=== PATIENT | female | born 1995 | race Caucasian/White ===

== ENCOUNTER 2016-10-23 14:57 | Inpatient (IN) ==
[2016-10-23] MEDS ORDERED: PEPCID IV PRN (20:15)
[2016-10-23] MEDS ORDERED: AMBIEN PO PRN (20:15)
[2016-10-23] MEDS ORDERED: PITOCIN 30 UNITS/LR 30 UNITS/500 ML IV.SOLN IV SCH (20:15)
[2016-10-23] MEDS ORDERED: BRETHINE SUBQ PRN (20:15)
[2016-10-23] MEDS ORDERED: PEPCID PO PRN (20:15)
[2016-10-23] MEDS ORDERED: TYLENOL PO PRN (20:15)
[2016-10-23] MEDS ORDERED: STADOL IV PRN ×2 (20:15)
[2016-10-23] MEDS ORDERED: KEFZOL 1 GM/D5W 1 GM/50 ML IVPB IV PRN (20:15)
[2016-10-23] MEDS ORDERED: ZOFRAN IV PRN (20:15)
[2016-10-23] MEDS ORDERED: AMPICILLIN 2 GM/NS 2 GM/100 ML IVPB IV ONE (20:22)
[2016-10-23] MEDS: LR 1,000 ML IV ONE (21:36)
[2016-10-23] MEDS ORDERED: CYTOTEC PO ONE (23:00)
[2016-10-23 23:12] LABS: URINE SOURCE VOIDED
[2016-10-23 23:12] LABS: MANUAL DIFF NEEDED? NO
[2016-10-23 23:34] LABS: BASO% 0.1 % (0.0-0.8); EOS# 0.35 X1000 (0.0-0.7); EOS% 2.5 % (0.0-10.0); HEMOGLOBIN 11.3 g/dL (12.0-16.0); IMM GRAN# 0.14 X1000 (0.0-0.04); LYMPH# 2.12 X1000 (1.2-3.4); LYMPH% 15.2 % (20.5-51.1); MCH 29.4 PG (27-31); MCHC 33.2 g/dL (33-37); MCV 88.5 FL (81-99); MONO# 1.24 X1000 (0.11-0.59); MONO% 8.9 % (1.7-9.3); MPV 10.7 FL (7.4-10.4); NEUT% 72.3 % (42.2-75.2); PLT 213 X1000 (130-400); RBC 3.84 XMIL (4.2-5.4)
[2016-10-23 23:40] LABS: CLARITY CLEAR (CLEAR); COLOR YELLOW
[2016-10-23 23:41] LABS: BILIRUBIN URINE NEGATIVE (NEGATIVE); BLOOD URINE NEGATIVE (NEGATIVE)
[2016-10-23 23:42] LABS: LEUKOCYTES URINE NEGATIVE (NEGATIVE); NITRITE URINE NEGATIVE (NEGATIVE); PROTEIN URINE NEGATIVE (NEGATIVE); UROBILINOGEN URINE NORMAL
[2016-10-23 23:48] LABS: UR AMPHETAMINES QUAL NONE DETECTED (NONE DETECT); UR BARBITUATES QUAL NONE DETECTED (NONE DETECT); UR BENZODIAZEPIN QUAL NONE DETECTED (NONE DETECT); UR CANNABINOIDS QUAL NONE DETECTED (NONE DETECT); UR COCAINE QUAL NONE DETECTED (NONE DETECT); UR MDMA QUAL NONE DETECTED (NONE DETECT); UR METHADONE QUAL NONE DETECTED (NONE DETECT); UR METHAMPHETAMINE QUAL NONE DETECTED (NONE DETECT); UR OPIATES QUAL NONE DETECTED (NONE DETECT); UR OXYCODONE QUAL NONE DETECTED (NONE DETECT); UR PCP QUAL NONE DETECTED (NONE DETECT); UR TCA QUAL NONE DETECTED (NONE DETECT)
[2016-10-24] MEDS: AMPICILLIN 1 GM/NS 1 GM/50 ML IVPB IV SCH ×3 (01:34→09:26)
[2016-10-24] MEDS: LR 1,000 ML IV ONE (03:04)
[2016-10-24] MEDS: CYTOTEC PO SCH ×2 (03:04→06:22)
[2016-10-24] MEDS ORDERED: MINERAL OIL ONE (07:11)
[2016-10-24] MEDS ORDERED: XYLOCAINE-MPF 1% INJ ONE (07:12)
[2016-10-24] MEDS ORDERED: FENTANYL-BUPIV-NS 2 MCG-0.1% 200 ML EPIDURAL PRN (08:12)
[2016-10-24] MEDS: STADOL IV PRN ×2 (09:49→12:57)
[2016-10-24] MEDS ORDERED: LR 1,000 ML IV SCH (13:00)
[2016-10-24] MEDS ORDERED: BICITRA PO ONE (13:15)
[2016-10-24] MEDS ORDERED: PEPCID IV ONE (13:15)
--- NOTE | 2016-10-24 13:33 | HISTORY AND PHYSICAL ---
DIAGNOSIS: Failure to progress in labor. SUMMARY: Sharlene Pereira is a 21-year-old, primigravida at 39 weeks gestation. Her blood type is A negative. Rubella immune. Hepatitis B surface antigen and HIV are negative. Group B strep is positive. The patient's was uncomplicated until into the 3rd trimester when the ultrasound revealed a small for gestational age findings and decreased amniotic fluid. There has been some increase in growth and normalization of fluid but the still measures small for gestational age. We have been doing NSTs due to decreased movement. Due to these concerns about status she was admitted to the hospital last night and we began Cytotec. This morning we started IV Pitocin. In spite of these measures her cervix is still fingertip dilated and 50% effaced and the infant's head is at -1 station. After discussing options with the patient of C- section versus 2nd day of induction, decision was made to proceed with delivery. PAST MEDICAL HISTORY: Patient has no chronic medical or surgical illnesses. ALLERGIES: Z-Joshua. CURRENT MEDICATIONS: vitamins. PHYSICAL EXAMINATION: GENERAL: Shows a well-developed, well-nourished female. VITAL SIGNS: Stable and she is afebrile. CARDIOVASCULAR: Regular rate and rhythm without murmurs, rubs, or gallops. PULMONARY: Clear. BREASTS: No masses. ABDOMEN: Gravid. PELVIC: Cervix as above. EXTREMITIES: There is 1+ edema. IMPRESSION: Failed induction of labor. Indication for induction was small for gestational age. PLAN: We will proceed with delivery. Risks, benefits, possible complications, and obstetrical indications were discussed. cc: Kirill Hoyt MD
[2016-10-24] MEDS ORDERED: NEO-SYNEPHRINE ONE (13:40)
[2016-10-24] MEDS ORDERED: NS 0 ML ONE (13:40)
[2016-10-24] MEDS ORDERED: SODIUM CHLORIDE 0.9% 10 ML ONE (13:42)
[2016-10-24] MEDS ORDERED: DURAMORPH ONE (13:44)
[2016-10-24] MEDS ORDERED: ZOFRAN ONE (13:46)
[2016-10-24] MEDS ORDERED: PITOCIN ONE ×2 (13:47→14:21)
[2016-10-24] MEDS ORDERED: ZOFRAN ODT PO PRN (15:28)
[2016-10-24] MEDS ORDERED: ZOFRAN IV PRN ×2 (15:28)
[2016-10-24] MEDS ORDERED: NARCAN INJ PRN (15:28)
[2016-10-24] MEDS ORDERED: PITOCIN 10 UNITS/LR 10 UNIT/1,000 ML IV.SOLN IV SCH (15:47)
[2016-10-24] MEDS ORDERED: PITOCIN 20 UNITS/LR 20 UNITS/1,000 ML IV.SOLN IV ONE (15:47)
[2016-10-24] MEDS ORDERED: M-M-R II VACCINE SUBQ ONE (15:47)
[2016-10-24] MEDS ORDERED: HYDROXYZINE IM PRN (15:47)
[2016-10-24] MEDS ORDERED: PERCOCET-10 PO PRN (15:47)
[2016-10-24] MEDS ORDERED: PHENERGAN IM PRN (15:47)
[2016-10-24] MEDS ORDERED: NORCO-10 PO PRN (15:47)
[2016-10-24] MEDS ORDERED: CYTOTEC PO PRN (15:47)
[2016-10-24] MEDS ORDERED: PITOCIN IM PRN (15:47)
[2016-10-24] MEDS ORDERED: DEMEROL PO PRN ×2 (15:47)
[2016-10-24] MEDS ORDERED: PERCOCET-5 PO PRN (15:47)
[2016-10-24] MEDS ORDERED: AMBIEN PO PRN (15:47)
[2016-10-24] MEDS ORDERED: MYLICON PO PRN (15:47)
[2016-10-24] MEDS ORDERED: DEMEROL IM PRN (15:47)
[2016-10-24] MEDS ORDERED: HYDROXYZINE PO PRN (15:47)
[2016-10-24] MEDS ORDERED: DULCOLAX PR PRN (15:47)
[2016-10-24] MEDS ORDERED: BOOSTRIX VACCINE IM ONE (15:47)
[2016-10-24] MEDS: TORADOL IV PRN ×2 (15:50→22:05)
[2016-10-24] MEDS: TORADOL IV SCH ×2 (17:43→23:13)
[2016-10-24] MEDS: MYLICON PO SCH ×2 (18:05→22:06)
--- NOTE | 2016-10-24 18:09 | OPERATIVE NOTE ---
PROCEDURE DATE: 10/24/2016 SURGEON: Kirill Hoyt MD ANESTHESIA: Spinal. OPERATION PERFORMED: Primary low transverse PREOPERATIVE DIAGNOSES: 1. Term . 2. Failure to progress in labor. POSTOPERATIVE DIAGNOSES: Term . Failure to progress in labor. FINDINGS: At 1415 hours, a 6 pound 15 ounce male was delivered in a vertex presentation. Apgars were 9 at 1 minute and 10 at 5 minutes. Summary of Ms. grullon he was taken back to operating room, where spinal anesthetic was placed. She was then placed in supine position with left lateral tilt. A Sherwood catheter was in her urinary bladder draining clear urine. The abdomen was prepped and draped in usual fashion. Once satisfactory conduction of anesthesia was demonstrated, a Pfannenstiel incision was made. This incision was taken down to the fascia. The fascia was excised transversely. The underlying rectus muscles were bluntly and sharply dissected free. Rectus muscle was in midline. The peritoneum was entered. Lower uterine segment was identified. A bladder flap was created. A low transverse incision was made across the myometrium. This incision extended laterally using digital pressure. Membranes were ruptured revealing a small amount of clear fluid. 's vertex was delivered through this incision without difficulty. Shoulders and body delivered without complications. Oropharynx was bulb suctioned. The cord was clamped and cut. The was handed nurses for further care and evaluation. Cord blood was obtained. Placenta was manually removed. Uterus as well as the abdominal wall explored. All membrane fragments removed. The myometrium was then reapproximated using a running #1 chromic interlocking suture. The uterus was placed back in pelvic cavity. The pelvic cavity was irrigated with copious amounts of sterile water. The uterine incision was reexamined and found to be hemostatic. First and 2nd sponge, instrument and needle counts were reported as correct. The peritoneum was closed using running chromic suture. Third sponge, instrument and needle count reported as correct. The fascia closed using running Vicryl sutures x2. The adipose tissue was reapproximated using a running 3-0 Vicryl suture, and the skin edges reapproximated using a 4-0 Biosyn on a Deondre needle. Anesthesia estimated her blood loss at 500 mL. There were no complications. The patient went to recovery room in stable condition. cc: Kirill Hoyt MD
[2016-10-24] MEDS: MORPHINE IV PRN (18:35)
[2016-10-24] MEDS: PERICOLACE PO SCH (20:47)
[2016-10-24] MEDS: BENADRYL IV PRN (22:07)
[2016-10-25] MEDS: MORPHINE IV PRN (03:01)
[2016-10-25] MEDS: BENADRYL IV PRN (03:09)
[2016-10-25] MEDS: TORADOL IV SCH ×2 (03:09→08:50)
[2016-10-25 06:57] LABS: HEMATOCRIT 27.1 % (37.0-47.0); HEMOGLOBIN 8.9 g/dL (12.0-16.0); MCH 29.4 PG (27-31); MCHC 32.8 g/dL (33-37); MCV 89.4 FL (81-99); MPV 9.7 FL (7.4-10.4); RBC 3.03 XMIL (4.2-5.4)
[2016-10-25] MEDS: PRECARE PO SCH (08:50)
[2016-10-25] MEDS: HEMOCYTE PLUS CAPSULE PO SCH (08:50)
[2016-10-25] MEDS: MYLICON PO SCH ×4 (08:50→20:47)
[2016-10-25] MEDS: NORCO-5 PO PRN ×2 (14:11→19:17)
[2016-10-25] MEDS ORDERED: LR 1,000 ML IV SCH (15:04)
[2016-10-25] MEDS: PERICOLACE PO SCH (20:47)
[2016-10-26] MEDS: MOTRIN PO PRN ×2 (00:15→09:37)
[2016-10-26] MEDS: MYLICON PO SCH (09:37)
[2016-10-26] MEDS: NORCO-5 PO PRN (09:37)
[2016-10-26] MEDS: HEMOCYTE PLUS CAPSULE PO SCH (09:37)
[2016-10-26] MEDS: PRECARE PO SCH (09:37)
[2016-10-26 11:14] VITALS: BP 130/64
--- NOTE | 2016-10-26 12:53 | DISCHARGE SUMMARY ---
ADMISSION DATE: 10/23/2016 DISCHARGE DATE: 10/26/2016 ADMITTING DIAGNOSIS: Term , for induction. DISCHARGE DIAGNOSES: 1. Term , for induction. 2. Failure to progress. 3. Status post low transverse delivery. CONDITION: Stable. DIET: As tolerated. ACTIVITY: Routine and postop. MEDICATIONS: She is to continue vitamins with iron. She is to take [id number] stool softeners and nonsteroidals. A prescription for Matheny 10 was given. FOLLOWUP: She is to follow up next week with Dr. Hoyt. She does have A negative blood type and did receive RhoGAM. PHYSICAL EXAMINATION: VITAL SIGNS: Her vital signs are stable. She is afebrile. GENERAL: She is alert and cooperative, does not appear to be in any distress, appears to be quite happy with her baby. NECK: Supple. LUNGS: Clear. HEART: Regular sinus rhythm. ABDOMEN: Slightly distended. Incision is dry and intact. EXTREMITIES: There is +2 lower extremity edema. Hemoglobin is 8.9. We will discharge with the above instructions. cc: MD Kirill Wright MD
== END 2016-10-26 13:25 | disposition home or self-care (01) ==
LOC: P.LD 20:13 → P.WC 10-24 16:31
PROVIDERS: ADMIT Obstetrics & Gynecology; ATTEND Obstetrics & Gynecology